=== PATIENT | male | born 1935 | race Caucasian/White ===

== ENCOUNTER 2016-07-16 08:35 | Outpatient (CLI) | payer MEDICARE, BC | END 2016-07-16 23:59 | disposition home or self-care (01) | LOC: WOU 08:35 | PROVIDERS: ATTEND Specialist | DX: L02.811 Cutaneous abscess of head [any part, except face] (principal); G91.3 Post-traumatic hydrocephalus, unspecified; Z98.2 Presence of cerebrospinal fluid drainage device; G35 Multiple sclerosis; L89.313 Pressure ulcer of right buttock, stage 3; F03.90 Unspecified dementia, unspecified severity, without behavioral disturbance, psychotic disturbance, mood disturbance, and anxiety; R15.9 Full incontinence of feces; Z79.899 Other long term (current) drug therapy; K61.3 Ischiorectal abscess | CPT/HCPCS: 11042; 87070 ×2; 87075 ×2; A6197; A6209; A6402 ==